=== PATIENT | male | born 1965 | race Caucasian/White ===

== ENCOUNTER 2018-11-04 05:24 | Day surgery (SDC) | payer OTHER ==
[~2018-11-04 05:24] MED LIST: CEFAZOLIN SODIUM/DEXTROSE,ISO 50 ML IV ONE
[2018-11-04] MEDS ORDERED: CLINDAMYCIN 900 MG/6 ML VIAL ONE (06:47)
== END 2018-11-04 09:15 | disposition home or self-care (01) ==
LOC: DS 05:24
PROVIDERS: ATTEND Specialist
DX: S83.241A Other tear of medial meniscus, current injury, right knee, initial encounter (principal); M67.51 Plica syndrome, right knee; M94.261 Chondromalacia, right knee; X58.XXXA Exposure to other specified factors, initial encounter; Y93.89 Activity, other specified; Y92.89 Other specified places as the place of occurrence of the external cause; Y99.8 Other external cause status
CPT/HCPCS: 29881; A4217; A6253; J0690; J2704; J3490 ×2; J7120; 88304-TC; 88311-TC